=== PATIENT | female | born 1960 | race Caucasian/White ===

== ENCOUNTER → 2017-07-31 | Outpatient (CLI) | payer OTHER ==
[~2017-07-31] MED LIST: PROVERA10 MG PO; SYNTHROID RP0.1 MG PO
== END | disposition home or self-care (01) ==
LOC: MAMMO 07-17 17:20
DX: Z12.31 Encounter for screening mammogram for malignant neoplasm of breast (principal); Z88.2 Allergy status to sulfonamides; Z88.5 Allergy status to narcotic agent

== ENCOUNTER → 2017-11-12 | Outpatient (CLI) | payer OTHER ==
[~2017-11-12] MED LIST changes: +OMEPRAZOLE40 MG PO; -SYNTHROID RP0.1 MG PO; +Synthroid,Levo25 MCG PO
== END | disposition home or self-care (01) ==
LOC: US 14:34
DX: E06.0 Acute thyroiditis (principal); E06.5 Other chronic thyroiditis; E03.9 Hypothyroidism, unspecified

== ENCOUNTER → 2017-12-17 | Day surgery (SDC) | payer OTHER ==
[~2017-12-17] VITALS: Ht 170.1 cm; Wt 87.1 kg
[2017-12-17 07:00] VITALS: BP 150/76
[2017-12-17 09:02] VITALS: BP 100/50
[2017-12-17 09:15] VITALS: BP 94/60
[2017-12-17 09:33] VITALS: BP 107/57
== END | disposition home or self-care (01) ==
LOC: SDC 12-13 13:15
DX: Z12.11 Encounter for screening for malignant neoplasm of colon (principal); K57.30 Diverticulosis of large intestine without perforation or abscess without bleeding; K29.50 Unspecified chronic gastritis without bleeding; K22.10 Ulcer of esophagus without bleeding; K44.9 Diaphragmatic hernia without obstruction or gangrene; K21.9 Gastro-esophageal reflux disease without esophagitis; E07.9 Disorder of thyroid, unspecified; E66.9 Obesity, unspecified; Z68.30 Body mass index [BMI] 30.0-30.9, adult; Z88.5 Allergy status to narcotic agent; Z88.2 Allergy status to sulfonamides; Z90.710 Acquired absence of both cervix and uterus; Z98.51 Tubal ligation status; Z98.890 Other specified postprocedural states; Z79.899 Other long term (current) drug therapy; Z90.49 Acquired absence of other specified parts of digestive tract; Z80.0 Family history of malignant neoplasm of digestive organs

== ENCOUNTER → 2019-02-24 | Outpatient (CLI) | payer BC | END | disposition home or self-care (01) | LOC: MAMMO 13:36 | DX: Z12.31 Encounter for screening mammogram for malignant neoplasm of breast (principal) ==

== ENCOUNTER → 2020-03-15 | Outpatient (CLI) | payer BC | END | disposition home or self-care (01) | LOC: COVID19 10:05 | PROVIDERS: ATTEND Nurse Practitioner Family | DX: Z11.52 Encounter for screening for COVID-19 (principal) ==

== ENCOUNTER → 2020-04-20 | Outpatient (CLI) | payer BC | END | disposition home or self-care (01) | LOC: MAMMO 16:28 | PROVIDERS: ATTEND Obstetrics & Gynecology | DX: Z12.31 Encounter for screening mammogram for malignant neoplasm of breast (principal); N63.20 Unspecified lump in the left breast, unspecified quadrant; N64.89 Other specified disorders of breast ==